=== PATIENT | male | born 1965 | race Caucasian/White ===

== ENCOUNTER → 2016-11-19 | Outpatient (CLI) | payer OTHER, BC ==
[~2016-11-19] MED LIST: LEVO125T4 PO; MELO15TA4 PO; SIMV20TA2 PO
[2016-11-19 12:25] LABS: BASO % 0.7 %; BASO ABS # 0.03 K/uL (0-0.2); COMPLETE YES; EOS % 2.7 %; IG% 0.2 %; LYMPH % 39.3 %; LYMPH ABS # 1.62 K/uL (1.2-3.4); MEAN CELL VOLUME 92.5 fL (80-100); MEAN CORPUSCULAR HEMOGLOBIN 32.9 pg (25-34); MEAN CORPUSCULAR HGB CONC 35.6 g/dl (32-36); MEAN PLATELET VOLUME 10.8 fL (7.4-10.4); MONO % 8.3 %; NEUT % 48.8 %; PLATELET COUNT 152 K/uL (130-400); RED BLOOD COUNT 4.65 M/uL (4.7-6.1); WHITE BLOOD COUNT 4.12 K/uL (4.8-10.8)
[2016-11-19 12:39] LABS: ALT/SGPT 35 U/L (12-78); BLOOD UREA NITROGEN 18 mg/dl (7-18); BUN/CREATININE RATIO 18.1 (10-20); CALCIUM 8.9 mg/dl (8.5-10.1); CARBON DIOXIDE 30 mmol/L (21-32); CHLORIDE 103 mmol/L (98-107); CHOLESTEROL 179 mg/dl (0-200); GLUCOSE 86 mg/dl (70-99); POTASSIUM 4.1 mmol/L (3.5-5.1); SODIUM 140 mmol/L (136-145); TRIGLYCERIDES 75 mg/dl (0-150); VERY LOW DENSITY LIPOPROT CALC 15 mg/dl
[2016-11-19 12:48] LABS: ALB/GLOB RATIO 1.4 (0.9-2); ALKALINE PHOSPHATASE 53 U/L (45-117); AST/SGOT 27 U/L (15-37); CHOLESTEROL/HDL RATIO 2.8; HDL CHOLESTEROL 64 mg/dl; LDL CHOLESTEROL CALCULATED 100 mg/dl; PROSTATE SPECIFIC ANTIGEN 0.746 ng/ml (0.000-4.000)
== END | disposition home or self-care (01) ==
LOC: C.LABBFT 07:32
PROVIDERS: ATTEND Internal Medicine
DX: E78.5 Hyperlipidemia, unspecified (principal); E03.9 Hypothyroidism, unspecified; D72.819 Decreased white blood cell count, unspecified; D23.9 Other benign neoplasm of skin, unspecified; M25.511 Pain in right shoulder; Z12.11 Encounter for screening for malignant neoplasm of colon; S46.819A Strain of other muscles, fascia and tendons at shoulder and upper arm level, unspecified arm, initial encounter; X58.XXXA Exposure to other specified factors, initial encounter

== ENCOUNTER → 2017-02-04 | Outpatient (CLI) | payer OTHER, BC ==
[~2017-02-04] MED LIST changes: -LEVO125T4 PO; +LEVO125T5 PO
[2017-02-04 12:51] LABS: URINE APPEARANCE CLEAR (CLEAR); URINE BILIRUBIN NEG (NEG); URINE COLOR YELLOW; URINE EPITHELIAL CELL AUTO 0-5 /lpf (0-5); URINE NITRITE NEG (NEG); URINE PH 6.5 (4.5-7.5); URINE SPECIFIC GRAVITY 1.007 (1.000-1.030); UROBILINOGEN NEG (NEG)
[2017-02-04 12:58] LABS: MANUAL MICROSCOPIC REQUIRED? NO; REVIEW REQ? NO
== END | disposition home or self-care (01) ==
LOC: C.LABBFT 07:42
PROVIDERS: ATTEND Nurse Practitioner
DX: D72.819 Decreased white blood cell count, unspecified (principal); E03.9 Hypothyroidism, unspecified

== ENCOUNTER → 2018-01-09 | Outpatient (CLI) | payer BC ==
[~2018-01-09] MED LIST changes: +MELO-84 PO; -MELO15TA4 PO
[2018-01-09 13:22] LABS: ALBUMIN 4.2 gm/dl (3.4-5.0); ALT/SGPT 33 U/L (12-78); BLOOD UREA NITROGEN 21 mg/dl (7-18); CALCIUM 9.2 mg/dl (8.5-10.1); CARBON DIOXIDE 31 mmol/L (21-32); CHOLESTEROL 163 mg/dl (0-200); GLUCOSE 91 mg/dl (70-99); POTASSIUM 4.6 mmol/L (3.5-5.1); SODIUM 139 mmol/L (136-145)
[2018-01-09 13:30] LABS: ALKALINE PHOSPHATASE 54 U/L (45-117); AST/SGOT 29 U/L (15-37); LDL CHOLESTEROL CALCULATED 90 mg/dl; TOTAL PROTEIN 7.3 gm/dl (6.4-8.2)
== END | disposition home or self-care (01) ==
LOC: C.LABBFT 07:06
PROVIDERS: ATTEND Nurse Practitioner
DX: Z00.00 Encounter for general adult medical examination without abnormal findings (principal); Z12.5 Encounter for screening for malignant neoplasm of prostate; E78.5 Hyperlipidemia, unspecified; R39.9 Unspecified symptoms and signs involving the genitourinary system; E03.9 Hypothyroidism, unspecified

== ENCOUNTER → 2018-01-09 | Outpatient (CLI) | payer BC ==
[2018-01-09 17:39] LABS: BASO % 0.6 %; BASO ABS # 0.04 K/uL (0-0.2); EOS ABS # 0.13 K/uL (0-0.5); HEMATOCRIT 42.5 % (42-52); HEMOGLOBIN 15.4 g/dL (14.0-18.0); IG# 0.01 K/uL (0.00-0.02); LYMPH % 29.5 %; LYMPH ABS # 1.91 K/uL (1.2-3.4); MEAN CELL VOLUME 92.8 fL (80-100); MEAN CORPUSCULAR HEMOGLOBIN 33.6 pg (25-34); MEAN CORPUSCULAR HGB CONC 36.2 g/dl (32-36); MEAN PLATELET VOLUME 10.7 fL (7.4-10.4); MONO % 6.9 %; MONO ABS # 0.45 K/uL (0.11-0.59); NEUT % 60.8 %; NEUT ABS # 3.94 K/uL (1.4-6.5); PLATELET COUNT 166 K/uL (130-400); RED CELL DISTRIBUTION WIDTH SD 44.1 fL (36.4-46.3); WHITE BLOOD COUNT 6.48 K/uL (4.8-10.8)
== END | disposition home or self-care (01) ==
LOC: C.LABBFT 14:20
PROVIDERS: ATTEND Internal Medicine
DX: D72.819 Decreased white blood cell count, unspecified (principal)